=== PATIENT | male | born 1965 | race Caucasian/White ===

== ENCOUNTER 2022-12-06 10:44 | Emergency (ER) | payer OTHER ==
[~2022-12-06] VITALS: Ht 188 cm; Wt 130.7 kg
[2022-12-06] MEDS ORDERED: LIDOCAINE VISCOUS 2% 15ML UD MT ONE (11:30)
[2022-12-06] MEDS ORDERED: SODIUM CHLORIDE 0.9% 1,000 ML IV ONE (11:30)
[2022-12-06 11:57] LABS: Basophils # (auto) 0 10 ^3/uL (0-0.2); Basophils % (auto) 0.3 % (0.0-2.0); Eosinophils # (auto) 0.3 10 ^3/uL (0-0.8); Hemoglobin 17.4 g/dL (13.5-17.5); Lymphocytes # (auto) 2.6 10 ^3/uL (0.4-5.4); Lymphocytes % (auto) 25.9 % (10.0-50.0); Mean Corpuscular Hemoglobin 30.6 pg (28.0-32.0); Mean Corpuscular Hgb Conc. 34.2 g/dL (32.0-36.0); Mean Corpuscular Volume 89.4 fL (80.0-100.0); Monocytes # (auto) 0.5 10 ^3/uL (0-1.3); Monocytes % (auto) 4.7 % (0.0-12.0); Neutrophils # (auto) 6.5 10 ^3/uL (1.6-8.6); Neutrophils % (auto) 66.1 % (37.0-80.0); Nucleated Red Blood Cells % 0.1 %; Red Cell Distribution Width 13.6 % (11.8-14.3); White Blood Cell 9.9 10^3/uL (4.4-10.8)
[2022-12-06 13:10] VITALS: BP 144/86
== END 2022-12-06 13:12 | disposition home or self-care (01) ==
LOC: ER 10:44
DX: R04.0 Epistaxis (principal); Z88.1 Allergy status to other antibiotic agents; E78.5 Hyperlipidemia, unspecified
CPT/HCPCS: 30901; 36415; 85025; 86850; 86900; 86901; 96360; 96361; 99284; J7030

== ENCOUNTER 2022-12-07 07:09 | Emergency (ER) | payer OTHER ==
[~2022-12-07] VITALS: Ht 208.3 cm; Wt 132.0 kg
[2022-12-07 08:04] VITALS: BP 144/94
== END 2022-12-07 08:15 | disposition home or self-care (01) ==
LOC: ER 07:09
DX: R04.0 Epistaxis (principal); E78.5 Hyperlipidemia, unspecified; Z09 Encounter for follow-up examination after completed treatment for conditions other than malignant neoplasm; Z88.1 Allergy status to other antibiotic agents